=== PATIENT | male | born 1960 | race Caucasian/White ===

== ENCOUNTER 2017-11-07 13:23 | Emergency (ER) | payer OTHER ==
[~2017-11-07] VITALS: Ht 182.9 cm; Wt 120.2 kg
[2017-11-07 13:29] VITALS: BP 132/80
--- NOTE | 2017-11-07 14:10 | RADIOLOGY REPORT ---
EXAMINATION: XR HAND, RIGHT CLINICAL INFORMATION: Trauma. Hit hand with hammer. Fracture evaluation. COMPARISON: None TECHNIQUE: PA, lateral, and oblique views of the right hand. FINDINGS: Alignment is normal. The joint spaces are maintained. No evidence of acute fracture, subluxation or focal soft tissue swelling. No radiopaque foreign body in the hand or wrist. IMPRESSION: No acute osseous injury.
[2017-11-07] MEDS ORDERED: IBUPROFEN800 M1 PO (14:23)
--- NOTE | 2017-11-07 14:24 | ED HAND/WRIST INJURY COMPLAINT ---
History of Present Illness General Chief Complaint: Hand or Wrist Injury Stated Complaint: RIGHT HAND SWELLING FROM HAMMER Source: patient Exam Limitations: no limitations Vital Signs & Intake/Output Vital Signs & Intake/Output ED Intake and Output 11/08 0000 11/07 1200 Intake Total 0 Output Total Balance 0 Intake, Oral 0 Patient 265 lb Weight Weight Reported by Patient Measurement Method Allergies Coded Allergies: No Known Drug Allergies (Intermediate, NONE 11/07/17) Reconcile Medications Ibuprofen 800 MG TABLET 1 TAB PO TID PRN PAIN Triage Note: C/O PAIN ON TOP OF R HAND, ACCIDENTALLY HIT SELF WITH A HAMMER 2 DAYS AGO. Triage Nurses Notes Reviewed? yes Occurred: yesterday Duration: day(s): (1), constant, continues in ED Timing: single episode today Injury Environment: home Severity: mild, moderate Severity Numbers: 6 Pain/Injury Location: Right: Hand. Context: blow Method of Injury: direct blow No Modifying Factors: none Modifying Factors: Worsens With: movement. Associated Symptoms: swelling HPI: 57 year old male no medical hx presents for eval of pain and swelling to his rt hand. reports that he hit his hand with a hammer yesterday. the hammer was hanging on his belt and hit his hand while he was walking. he reports pain and swelling over the dorsum of the 3rd mcp joint. no numbness or redness. no wrist pain. no meds for pain. no other injures. (Eric Donovan) Past History Travel History Traveled to [place] past 21 day No Medical History Any Pertinent Medical History? see below for history EENT: NONE Respiratory: NONE Gastrointestinal: NONE Hepatic: NONE Renal: NONE Musculoskeletal: NONE Psychiatric: NONE Endocrine: NONE Surgical History Surgical History: non-contributory Psychosocial History What is your primary language Icelandic Creole Tobacco Use: Quit >30 days ago ETOH Use: occasional use Family History Hx Contributory? No (Eric Donovan) Review of Systems Review of Systems Constitutional: Reports: no symptoms. EENTM: Reports: no symptoms. Respiratory: Reports: no symptoms. Cardiovascular: Reports: no symptoms. GI: Reports: no symptoms. Genitourinary: Reports: no symptoms. Musculoskeletal: Reports: joint pain, joint swelling. Skin: Reports: no symptoms. Neurological/Psychological: Reports: no symptoms. Hematologic/Endocrine: Reports: no symptoms. Immunologic/Allergic: Reports: no symptoms. All Other Systems: Reviewed and Negative (Eric Donovan) Physical Exam Physical Exam General Appearance: well developed/nourished, no apparent distress, alert, awake Head: atraumatic, normal appearance Eyes: Bilateral: normal appearance, EOMI. Ears, Nose, Throat: hearing grossly normal Neck: normal inspection, supple, full range of motion Cardiovascular/Respiratory: no respiratory distress Elbow Left: normal range of motion, normal inspection Elbow Right: normal range of motion, normal inspection Forearm Left: normal range of motion, normal inspection Forearm Right: normal range of motion, normal inspection Wrist Left: normal range of motion, normal inspection Wrist Right: normal range of motion, normal inspection Hand Left: normal inspection, normal range of motion Hand Right: normal range of motion, evidence of injury, swelling, tender, there is swelling and pain to palpation over the dorsum of the 3rd mcp joint. full rom intact with pain. n/v supply intact. no erythema. no broken skin. Neurologic/Tendon: normal sensation, normal motor functions, normal tendon functions Skin: intact, normal color, warm/dry (Eric Donovan) Progress Differential Diagnosis: contusion, dislocation, fracture, septic arthritis, sprain Plan of Care: pt here with pain and swelling over the dorsum of the rt hand after injury with a hammer. n/v supply intact. no broken skin. x-rays are negative. pt declines pain meds. RICE. DEIDRA wrap applied. tylenol/ibuprofen for pain. fiollow up with pcp. discussed return precautions. pt agrees. Diagnostic Imaging: Viewed by Me: Radiology Read. Discussed w/RAD: Radiology Read. Radiology Impression: PATIENT: JULITA KIRKLAND PRESENT AGE: 57 PATIENT ACCOUNT NO: [id number] : 61 LOCATION: [facility] ORDERING PHYSICIAN: Eric JONES SERVICE DATE: 11/07/17 EXAM TYPE: RAD - XRY-HAND, RIGHT EXAMINATION: XR HAND, RIGHT CLINICAL INFORMATION: Trauma. Hit hand with hammer. Fracture evaluation. COMPARISON: None TECHNIQUE: PA, lateral, and oblique views of the right hand. FINDINGS: Alignment is normal. The joint spaces are maintained. No evidence of acute fracture, subluxation or focal soft tissue swelling. No radiopaque foreign body in the hand or wrist. IMPRESSION: No acute osseous injury. DICTATED BY: Tank Borden MD/TIME DICTATED:1403 CL[address] DRIER REPAIRER:ADITHYA DATE/TIME TRANSCRIBED:11/07/171403 CONFIDENTIAL, DO NOT COPY WITHOUT APPROPRIATE AUTHORIZATION. <Electronically signed in Other Vendor System> SIGNED BY: Trey Borden MD (Eric Donovan) Departure Departure Disposition: HOME OR SELF CARE Condition: Stable Clinical Impression Primary Impression: Hand contusion Qualifiers: Encounter type: initial encounter Laterality: right Qualified Code: S60.221A - Contusion of right hand, initial encounter Referrals: Ricardo Ayers MD (PCP/Family) Additional Instructions: REST, APPLY ICE FOR 15-20 MIN EVERY FEW HOURS. WEAR DEIDRA WRAP. IBUPROFEN 800 EVERY 8 HOURS FOR PAIN AND SWELLING. LOOK FOR SIGNS OF INFECTION LIKE REDNESS SWELLING DISCHARGE FEVER OR PAIN. RETURN WITH ANY CONCERNS. Departure Forms: Customer Survey General Discharge Information Prescriptions: Current Visit Scripts Ibuprofen 1 TAB PO TID PRN PAIN #30 TAB (Eric Donovan) PA/DIRECTOR SALES Co-Sign Statement Statement: ED Attending supervision documentation- [] I saw and evaluated the patient. I have also reviewed all the pertinent lab results and diagnostic results. I agree with the findings and the plan of care as documented in the PA's/DIRECTOR SALES's documentation. [X] I have reviewed the ED Record and agree with the PA's/DIRECTOR SALES's documentation. [] Additions or exceptions (if any) to the PAs/DIRECTOR SALES's note and plan are summarized below: [] (Fantasma PARKER,Wilmer Ennis)
== END 2017-11-07 14:43 ==
LOC: ERH 13:23
DX: S60.221A Contusion of right hand, initial encounter (principal); W22.8XXA Striking against or struck by other objects, initial encounter; Y93.89 Activity, other specified; Y92.009 Unspecified place in unspecified non-institutional (private) residence as the place of occurrence of the external cause
CPT/HCPCS: 73130-RT

== ENCOUNTER 2017-12-18 18:46 | Emergency (ER) | payer OTHER ==
[~2017-12-18] VITALS: Ht 182.9 cm; Wt 122.5 kg
[~2017-12-18 18:46] MED LIST: IBUPROFEN800 M1 PO
[2017-12-18 18:51] VITALS: BP 126/83
--- NOTE | 2017-12-18 20:01 | RADIOLOGY REPORT ---
EXAMINATION: SHOULDER 4 VIEWS, RIGHT CLINICAL INFORMATION: Right shoulder pain after fall. COMPARISON: None. TECHNIQUE: AP views of the right shoulder were obtained in internal and external rotation. In addition, axillary and Y views were obtained. FINDINGS: There are no fractures or dislocations. The humeral head is seated within a well-formed glenoid. There is evidence of prior right shoulder surgery. The AC joint is intact. There is age-appropriate mild degenerative change to the right AC joint. IMPRESSION: No evidence for acute injury to the right shoulder. Mild age-appropriate degenerative change to the right AC joint with evidence of prior right shoulder surgery.
--- NOTE | 2017-12-18 20:04 | RADIOLOGY REPORT ---
EXAMINATIONS: CHEST 2 VIEWS AND RIGHT RIBS CLINICAL INFORMATION: Pain after fall. COMPARISON: Same day right shoulder radiographs. TECHNIQUE: PA and lateral views of the chest were obtained in addition to several views of the right ribs. FINDINGS: The cardiac silhouette is not enlarged. The mediastinal and hilar contours are unremarkable. There are neither pleural effusions nor pneumothoraces. There are no consolidations. There is evidence of prior right shoulder surgery. The osseous structures are otherwise unremarkable. Specifically, no rib fractures are identified. IMPRESSION: No evidence for acute disease. Specifically, no rib fractures identified.
[2017-12-18] MEDS ORDERED: CYCLOBENZAPRINE10 M1 PO (20:30)
[2017-12-18] MEDS ORDERED: LIDODERM1 EACH TOP (20:30)
--- NOTE | 2017-12-18 20:32 | ED GENERAL ADULT ---
History of Present Illness General Chief Complaint: Shoulder Injury Stated Complaint: RT SHOULDER PAIN S/P FALL Source: patient Exam Limitations: no limitations Vital Signs & Intake/Output Vital Signs & Intake/Output Vital Signs Date Time Temp Pulse Resp B/P B/P Pulse O2 O2 Flow FiO2 Mean Ox Delivery Rate 12/18 1851 97.0 68 16 126/83 98 Room Air Allergies Coded Allergies: No Known Drug Allergies (Intermediate, NONE 11/07/17) Reconcile Medications Cyclobenzaprine HCl 10 MG TABLET 1 TAB PO QPM PRN pain Ibuprofen 800 MG TABLET 1 TAB PO TID PRN PAIN Lidocaine (Lidoderm) 5 % ADH..PATCH 1 PAT TOP DAILY PRN pain may wear up to 12 hours Triage Note: PT STATES THAT HE SLIPPED AND FELL IN THE SHOWER ON SUNDAY AND FELL HITTING HIS R SIDE BACK RIB CAGE, STATES THAT HE HAS BEEN ABLE TO MANAGE PAIN BUT THIS AM HE SNEEZED AND SINCE THE PAIN HAS INCREASED Triage Nurses Notes Reviewed? yes Onset: Gradual Duration: day(s): Timing: constant HPI: 57-year-old male with no known past medical history presenting with right shoulder pain and right rib pain status post mechanical fall in the shower 2-3 days ago. Patient reports that he slipped and fell running into the shower and struck his right shoulder and right ribs on the edge of the bathtub. Denies any preceding symptoms such as lightheadedness, dizziness, shortness of breath, chest pain. Denies head strike or LOC. His pain was initially controlled with [id number] pain medications. This morning he had a forceful sneeze and had acute worsening of his right lateral rib pain. He has been unable to control his pain with [id number] pain medication since. (Anabel Oliveira) Past History Travel History Traveled to [place] past 21 day No Medical History Any Pertinent Medical History? none Neurological: NONE EENT: NONE Cardiovascular: NONE Respiratory: NONE Gastrointestinal: NONE Hepatic: NONE Renal: NONE Musculoskeletal: NONE Psychiatric: NONE Endocrine: NONE Blood Disorders: NONE Cancer(s): NONE Surgical History Surgical History: non-contributory Psychosocial History What is your primary language Rwandan Creole Tobacco Use: Never used ETOH Use: denies use Illicit Drug Use: denies illicit drug use Family History Hx Contributory? No (Anabel Oliveira) Review of Systems Review of Systems Constitutional: Reports: no symptoms. EENTM: Reports: no symptoms. Respiratory: Reports: no symptoms. Cardiovascular: Reports: no symptoms. GI: Reports: no symptoms. Genitourinary: Reports: no symptoms. Musculoskeletal: Reports: see HPI. Skin: Reports: no symptoms. Neurological/Psychological: Reports: no symptoms. Hematologic/Endocrine: Reports: no symptoms. Immunologic/Allergic: Reports: no symptoms. All Other Systems: Reviewed and Negative (Anabel Oliveira) Physical Exam Physical Exam General Appearance: well developed/nourished, no apparent distress, alert, awake , comfortable Comments: Gen.: Well-nourished, well-developed, no acute distress. Head: Normocephalic, atraumatic. Eyes: Normal inspection bilaterally Ears: Normal inspection bilaterally Nose: Normal inspection Neck: Normal inspection Lungs: clear to auscultation bilaterally, normnal breath sounds Chest wall: Positive tenderness to palpation over the right lateral intercostal muscles Heart: regular rate and rhythm Abdomen: soft and non-tender Extremities: Normal inspection, on exam of the right shoulder there is no evidence of injury, no focal tenderness to palpation, unrestricted range of motion, right upper extremity is neurovascularly intact Neurologic: alert and oriented x3, steady gait Skin: warm and dry Psychiatric: Normal mood and affect, no apparent delusions or hallucinations, behavior appropriate Core Measures ACS in differential dx? No CVA/TIA Diagnosis: No Sepsis Present: No Sepsis Focused Exam Completed? No (Anabel Oliveira) Progress Differential Diagnoses I considered the following diagnoses in my evaluation of the patient: [Shoulder contusion versus fracture versus dislocation versus intercostal muscle strain versus rib fracture] Plan of Care: X-rays unremarkable for acute injury. Instructed to continue using ibuprofen, but will give Rx for Lidoderm patches and Flexeril for additional pain relief. Counseled on supportive care with warm compresses and gentle stretching. Will follow up with his PMD for reevaluation. Given strict return precautions. Initial ED EKG: none (Anabel Oliveira) Departure Departure Disposition: HOME OR SELF CARE Condition: Stable Clinical Impression Primary Impression: Contusion of flank Secondary Impressions: Contusion of right shoulder, Fall Referrals: Andria PARKER,Ricardo Bustamante (PCP/Family) Additional Instructions: Continue using ibuprofen as needed for pain. Begin using Flexeril and Lidoderm patches for additional pain relief. Apply warm compresses followed by gentle stretching 2-3 times daily. Follow-up with your primary care provider for reevaluation. Return to the emergency department for any new or worsening symptoms. Departure Forms: Customer Survey General Discharge Information Prescriptions: Current Visit Scripts Cyclobenzaprine HCl 1 TAB PO QPM PRN pain #30 TAB Lidocaine (Lidoderm) 1 PAT TOP DAILY PRN pain #30 PAT may wear up to 12 hours (Anabel Oliveira) Resident Co-Sign Statement Statement: ED Attending supervision documentation- [] I saw and evaluated the patient. I have also reviewed all the pertinent lab results and diagnostic results. I agree with the findings and the plan of care as documented in the Resident's documentation. [X] I have reviewed the ED Record and agree with the Resident's documentation. [] Additions or exceptions (if any) to the Resident's note and plan are summarized below: [] (Joseph Galvan DO) Critical Care Note Critical Care Note Critical Care Time: non-applicable (Anabel Oliveira)
== END 2017-12-18 20:47 ==
LOC: ERH 18:46
DX: S30.1XXA Contusion of abdominal wall, initial encounter (principal); S40.011A Contusion of right shoulder, initial encounter; W18.2XXA Fall in (into) shower or empty bathtub, initial encounter; Y93.E1 Activity, personal bathing and showering; Y92.9 Unspecified place or not applicable
CPT/HCPCS: 71046; 71100-RT; 73030-RT